=== PATIENT | female | born 1950 | race Caucasian/White ===

== ENCOUNTER 2021-05-25 08:00 | Observation (INO) | payer OTHER, MEDICARE ==
[~2021-05-25 08:00] MED LIST: Lidocaine 1%/Sod Bicarbonate in NS 8.4% 1 ML Syringe IDERM PRN; Sodium Chloride 0.9% 10 ML Syringe FLUSH PRN
[2021-05-25] MEDS: Lactated Ringers 1,000 ML IV SCH ×3 (09:05→14:53)
--- NOTE | 2021-05-25 09:38 | PCM.PREANE ---
Preanesthetic Assessment - Procedure Proposed Procedure: Open ventral hernia repair - Anesthesia/Transfusion/Family Hx Anesthesia History: Prior Anesthesia Without Reaction Transfusion History: Prior Transfusion Without Reaction - Review of Systems General: No Symptoms Pulmonary: No Symptoms, Other (sleep apnea) Cardiovascular: No Symptoms, Other (s/p CABG, cardiac clearance, recent cardiac studies reviewed, good EF) Gastrointestinal: No Symptoms Neurological: No Symptoms Other: Reports: None - Physical Assessment NPO Status Date: 05/24/21 NPO Status Time: 18:00 Vital Signs: 146/77 62 HR 96% RA ASA Class: 3 Mental Status: Alert & Oriented x3 Airway Class: Mallampati = 2 Dentition: Reports: Normal Dentition, [place](s) Thyro-Mental Finger Breadths: 3 Mouth Opening Finger Breadths: 3 ROM/Head Extension: Full Lungs: Clear to Auscultation, Normal Respiratory Effort Cardiovascular: Regular Rate, Regular Rhythm - Lab Values: Laboratory Last Values WBC 6.56 K/mm3 (3.98-10.04) 05/25/21 08:36 RBC 4.73 M/mm3 (3.98-5.22) 05/25/21 08:36 Hgb 15.2 gm/dl (11.2-15.7) 05/25/21 08:36 Hct 44.2 % (34.1-44.9) 05/25/21 08:36 MCV 93.4 fl (79.4-94.8) 05/25/21 08:36 MCH 32.1 pg (25.6-32.2) 05/25/21 08:36 MCHC 34.4 g/dl (32.2-35.5) 05/25/21 08:36 RDW Std Deviation 43.2 fL (36.4-46.3) 05/25/21 08:36 Plt Count 296 K/mm3 (182-369) 05/25/21 08:36 MPV 9.2 fl (9.4-12.3) L 05/25/21 08:36 Neut % (Auto) 56.4 % (34.0-71.1) 05/25/21 08:36 Lymph % (Auto) 31.3 % (19.3-51.7) 05/25/21 08:36 [place] % (Auto) 7.8 % (4.7-12.5) 05/25/21 08:36 Eos % (Auto) 3.7 (0.7-5.8) 05/25/21 08:36 Baso % (Auto) 0.8 % (0.1-1.2) 05/25/21 08:36 Neut # (Auto) 3.71 K/mm3 (1.56-6.13) 05/25/21 08:36 Lymph # (Auto) 2.05 K/mm3 (1.18-3.74) 05/25/21 08:36 [place] # (Auto) 0.51 K/mm3 (0.24-0.36) H 05/25/21 08:36 Eos # (Auto) 0.24 K/mm3 (0.04-0.36) 05/25/21 08:36 Baso # (Auto) 0.05 K/mm3 (0.01-0.08) 05/25/21 08:36 - Allergies Allergies/Adverse Reactions: Allergies Allergy/AdvReac Type Severity Reaction Status Date / Time cat dander Allergy Cannot Verified 05/25/21 10:20 Remember Dairy Products Allergy Cannot Verified 05/25/21 10:20 Remember gluten Allergy Cannot Verified 05/25/21 10:20 Remember hydrocodone Allergy Cannot Verified 05/25/21 10:20 Remember latex Allergy Cannot Verified 05/25/21 10:20 Remember nut - unspecified Allergy Cannot Verified 05/25/21 10:20 Remember onion Allergy Cannot Verified 05/25/21 10:20 Remember oxycodone Allergy Cannot Verified 05/25/21 10:20 Remember shellfish derived Allergy Cannot Verified 05/25/21 10:20 Remember tramadol Allergy Cannot Verified 05/25/21 10:20 Remember - Acknowledgements Anesthesia Type Planned: General Anesthesia, Epidural (for postoperative pain management) Pt an Appropriate Candidate for the Planned Anesthesia: Yes Alternatives and Risks of Anesthesia Discussed w Pt/Guardian: Yes Pt/Guardian Understands and Agrees with Anesthesia Plan: Yes PreAnesthesia Questionnaire HEENT History: Reports: Allergic Rhinitis, Impaired Vision Cardiovascular History: Reports: High Cholesterol, Hypertension, NM Respiratory History: Reports: Sleep Apnea, Other (See Below) Other Respiratory History: dypsnea on exertion, not currently using CPAP due to recall Gastrointestinal History: Reports: Other (See Below) Other Gastrointestinal History: large abdominal hernia Genitourinary History: Reports: Urinary Incontinence, Other (See Below) Other Genitourinary History: incontinence, OAB, JOE, bladder repair [employer] History: Reports: Other (See Below) Other OB/BYN History: vaginal atrophy Musculoskeletal History: Reports: Arthritis, Other (See Below) Other Musculoskeletal History: abnormal leg movment Neurological History: Reports: None Psychiatric History: Reports: Anxiety, Depression Endocrine/Metabolic History: Reports: None Hematologic History: Reports: Anemia Immunologic History: Reports: None Oncologic (Cancer) History: Reports: None Dermatologic History: Reports: Cellulitis - Past Surgical History HEENT Surgical History: Reports: Tonsillectomy Cardiovascular Surgical History: Reports: Coronary Artery Bypass (2017) Respiratory Surgical History: Reports: None GI Surgical History: Reports: Appendectomy, Cholecystectomy, Colonoscopy, EGD Female Surgical History: Reports: None, Hysterectomy, Oophorectomy Male Surgical History: Reports: None Endocrine Surgical History: Reports: None Neurological Surgical History: Reports: None Musculoskeletal Surgical History: Reports: Other (See Below) Other Musculoskeletal Surgeries/Procedures:: knee reconstruction Oncologic Surgical History: Reports: None Dermatological Surgical History: Reports: None - SUBSTANCE USE Tobacco Use Status *Q: Never Tobacco User Recreational Drug Use History: No - HOME MEDS Home Medications: Home Meds Acetaminophen [Tylenol Arthritis] 650 mg PO Q4H PRN 05/24/21 [History] Azelastine [Astelin Nasal Soln] 1 dose NASBOTH BID 05/24/21 [History] Calcium Carb, Citrate/Vit D3 [Citracal + D ER] 1 tab PO DAILY 05/24/21 [History] DULoxetine [Cymbalta] 30 mg PO DAILY 05/24/21 [History] Diclofenac Sodium [Voltaren 1% Gel] 1 dose TOP BID 05/24/21 [History] Donepezil HCl [Aricept] 10 mg PO DAILY 05/24/21 [History] Ezetimibe [Zetia] 10 mg PO DAILY 05/24/21 [History] Ferrous Sulfate [Iron] 325 mg PO DAILY 05/24/21 [History] Ketorolac [Acular 0.5% Ophth Soln] 1 dose EYEBOTH DAILY 05/24/21 [History] Multivitamin 1 tab PO DAILY 05/24/21 [History] [place]-3/DHA/Epa/Fish Oil [[place]-3 Fish Oil 1,000 MG Sfgl] 1,000 mg PO DAILY 05/24/21 [History] Rosuvastatin [Crestor] 10 mg PO DAILY 05/24/21 [History] Solifenacin [Vesicare] 5 mg PO DAILY 05/24/21 [History] hydroCHLOROthiazide [Hydrochlorothiazide] 12.5 mg PO DAILY 05/24/21 [History] Aspirin [Children's Aspirin] 81 mg PO DAILY 05/25/21 [History] Melatonin 10 mg PO DAILY 05/25/21 [History] - CURRENT (IN HOUSE) MEDS Current Meds: Current Medications Lactated Ringer's (Ringers, Lactated) 1,000 mls @ 125 mls/hr IV ASDIRECTED JUAN Stop: 05/25/21 23:00 Lidocaine/Sodium Bicarbonate (Lidocaine 1%/Sod Bicarbonate In Ns 8.4% 1 Ml Syringe) 0.25 ml IDERM ONETIME PRN PRN Reason: Prior to IV Start Stop: 05/25/21 18:00 Sodium Chloride (Sodium Chloride 0.9% 10 Ml Syringe) 10 ml FLUSH ASDIRECTED PRN PRN Reason: Keep Vein Open Stop: 05/25/21 18:00
[2021-05-25] MEDS ORDERED: Bupivacaine 0.5%/EPINEPHrine 1:200,000 50 ML MDV ONE (09:42)
[2021-05-25] MEDS ORDERED: fentaNYL 100 MCG/2 ML SDV ONE (09:54)
[2021-05-25] MEDS ORDERED: Lidocaine 2% with EPINEPHrine 1:200,000 20 ML SDV ONE (09:54)
[2021-05-25] MEDS ORDERED: Midazolam 1 MG/ML 2 ML SDV ONE (09:55)
[2021-05-25] MEDS ORDERED: Propofol 200 MG/20 ML SDV ONE ×2 (09:56→12:41)
[2021-05-25] MEDS ORDERED: ceFAZolin 1 GM Vial ONE (11:03)
[2021-05-25] MEDS ORDERED: Bupivacaine 0.5% 10 ML SDV ONE (11:34)
--- NOTE | 2021-05-25 12:17 | PCM.PRNOTE ---
- Free Text/Narrative Note: Thoracic epidural placement for intraoperative and postoperative pain management Surgery: Open ventral hernia repair with mesh Requesting surgeon: Dr. Serge Anderson Patient has been interviewed, risk/benefits/alternatives discussed, questions answered. Vital signs and labs reviewed. Consent signed. IVF bolus given. Patient is sitting on the bed, feet supported on the stool, positioning using pillow . Time out performed at 10:27. Mask, head cover, sterile gloves on. Betadine preparation x3 and sterile drape. Midazolam 1 mg IV given. Local infiltration with 1% Lidocaine at T10 - T11 interspace. 1st attempt with 17G Tuohy needle midline T10-T11 interspace. difficulty advancing the needle and inability to engage in the ligamentum flavum. 2nd attempt - same interspace, paramedian approach, lamina contact with redirection cephalad. Loss of Resistance at 5.5 cm. No fluid obtained, no blood obtained. No paresthesia encountered. Easy threading in of 19G catheter. Secured at 12 cm at the skin. Test dose given 1.5% Lidocaine with 1:200K epinephrine, negative for intravascular/ negative for intrathecal placement. Vital signs stable. Fentanyl 100 mcg and then 7 mls of 2 % PF Lidocaine with 1:200K epinephrine given in incremental boluses. Catheter dressing applied and filter attached. Level assessed at 10:50 approximately T7. Start of procedure: 10:27 End of procedure: 10:43
[2021-05-25] MEDS ORDERED: Lactated Ringers 1,000 ML ONE (12:29)
[2021-05-25] MEDS ORDERED: diphenhydrAMINE 50 MG/ML SDV IVPUSH PRN (12:36)
[2021-05-25] MEDS ORDERED: ePHEDrine 50 MG/ML SDV IVPUSH PRN ×2 (12:36→15:31)
[2021-05-25] MEDS ORDERED: fentaNYL 100 MCG/2 ML SDV EPIDUR PRN (12:36)
--- NOTE | 2021-05-25 13:58 | PCM.PRNOTE ---
- Free Text/Narrative Note: Date: 05/25/2021 Operation: open retrorectus mesh repair of ventral hernias Surgeon: Serge Anderson MD Antibiotic: 2 g ancef IV pre-op EBL: 50 cc DVT Ppx: SCDs Findings: multiple fairly small fat containing midline hernias superior to the umbilicus. Some adhesiolysis needed, < 30 minutes. 20 x 15 cm piece of Progrip mesh cut to size and placed in retrorectus space. Detailed Report: An epidural catheter was placed for analgesia for the patient by the anesthesia team prior to starting the case in the operating room. The patient was taken to the operating room and placed on the table in supine position. Monitored anesthesia care was initiated and timeout was performed. The abdomen was prepped and draped in usual sterile fashion. A [place] catheter was placed. 10 cc of 0.5% Marcaine with epinephrine was injected intradermally along the planned midline incision. A 20 cm incision starting at the epigastrium and extending inferiorly just beyond the umbilicus was made with a scalpel. Dissection was carried down through subcutaneous tissue to the linea alba. One of the small hernia sacs was entered during this portion of the dissection and the hernia appeared to contain visceral fat. This point of entry into the abdomen was used to extend the incision along the linea alba and entered the abdomen. There were some adhesions of viscera to the anterior abdominal wall which were dissected sharply with scissors. Once the anterior abdominal wall was freed of all adhesions, dissection in the retrorectus space commenced. Starting on the left side, an incision was made at the posterior rectus sheath exposing the rectus muscle fibers. This incision was extended superiorly and inferiorly along the length of the incision. Posterior fascia was grasped and pulled to the midline as the bilingual administrative assistant helped retract the rectus muscle laterally. The retrorectus space was developed all the way to the linea semilunaris. The same dissection was done on the right side as well. The excess peritoneum associated with the hernia sacs was excised sharply. The posterior rectus sheath was reapproximated at the midline with running 0 PDS suture. Next, a rectangular sheet of ProGrip permanent mesh measuring 20 cm x 15 cm was placed with the longer aspect running longitudinally. Mesh was cut to size to fit in the retrorectus space. A few 3-0 Vicryl sutures were used to tack the mesh at the lateral, superior and inferior points. The mesh lay nicely in the retrorectus space. Next, anterior fascia was closed at the midline with running 0 PDS suture. The linea alba was recreated without undue tension. The subcutaneous tissue was closed with a few interrupted 3-0 Vicryl sutures and the skin was closed with running subcuticular 4-0 Vicryl suture. The wound was dressed with Dermabond. The patient tolerated the operation well.
[2021-05-25] MEDS ORDERED: Lactated Ringers 1,000 ML IV SCH (14:00)
--- NOTE | 2021-05-25 14:22 | PCM.POSTAN ---
POST ANESTHESIA ASSESSMENT - MENTAL STATUS Mental Status: Alert, Oriented - VITAL SIGNS Vital Signs: Postoperative Vital Signs 99/46 58 HR 13 RR 95% 2L 96.7 F - RESPIRATORY Respiratory Status: Respiratory Rate WNL, Airway Patent, O2 Saturation Stable, Supplemental Oxygen - CARDIOVASCULAR CV Status: Pulse Rate WNL, Blood Pressure Stable, Slow Pulse Rate (Glycopyrrolate given) - GASTROINTESTINAL GI Status: No Symptoms - PAIN Pain Score: 0 (epidural ) - POST OP HYDRATION Hydration Status: Adequate & Stable
[2021-05-25] MEDS: Heparin Sodium 5,000 Units/ML Vial SUBCUT SCH ×2 (14:52→22:13)
[2021-05-25] MEDS: Bupivacaine/fentaNYL/NS 100 ML Bag EPIDUR PRN (15:13)
[2021-05-26] MEDS: Heparin Sodium 5,000 Units/ML Vial SUBCUT SCH ×3 (06:54→21:10)
[2021-05-26] MEDS: Trospium 20 MG Tab PO SCH ×2 (06:55→16:45)
--- NOTE | 2021-05-26 07:18 | PCM48HPAN ---
Post Anesthesia Note - EVALUATION WITHIN 48HRS OF ANESTHETIC Vital Signs in Normal Range: Yes Patient Participated in Evaluation: Yes Respiratory Function Stable: Yes Airway Patent: Yes Cardiovascular Function Stable: Yes Hydration Status Stable: Yes Pain Control Satisfactory: Yes Nausea and Vomiting Control Satisfactory: Yes Mental Status Recovered: Yes Vital Signs: Last Vital Signs Temp 99.0 F 05/26/21 04:00 Pulse 76 05/26/21 06:00 Resp 18 05/26/21 06:00 BP 106/59 L 05/26/21 06:00 Pulse Ox 96 05/26/21 06:00 - COMMENTS/OBSERVATIONS Free Text/Narrative:: Assessment and re-evaluation of the patient receiving a continuous epidural drip Patient is on her postoperative day 1. Vitas signs stable. Thoracic epidural site intact. Current rate of Bupivacaine 0.125% with Fentanyl 2mcg/ml has been without change 5 mls/hr (PCEA bolus of 1 ml q 15 min). Patient is stable hemodynamically at this rate and tolerating well. No lower extremities weakness or numbness noted. Patient is up to the chair and ambulate with assistance as tolerated. Plan is to remove epidural catheter on 05/27/2021 am. We will reevaluate the patient within the next 24 hours. Richard Mark CRNA.
--- NOTE | 2021-05-26 08:57 | PCM.SN.2 ---
- Free Text/Narrative Note: S/p elective open retrorectus repair of ventral hernia 05/25/2021 S: no acute events overnight, no complaints O: AF-VSS adequate urine output epidural in place with good analgesic effect Awake and alert, no distress breathing comfortably on 2 L NC RRR Abd incision with some surrounding ecchymosis labs reviewed, wnl A: Doing well after hernia repair on POD 1 P: -analgesia per anesthesia team while epidural in place -IS, OOB, PT consult ordered -teresita -remove herbert -regular diet -heparin SC 5000 u for DVT ppx -no need for repeat labs unless clinically indicated
[2021-05-26] MEDS: Rosuvastatin 10 MG Tab PO SCH (09:32)
[2021-05-26] MEDS: Ezetimibe 10 MG Tab PO SCH (09:32)
[2021-05-26] MEDS: Donepezil 10 MG Tab PO SCH (09:33)
[2021-05-26] MEDS: DULoxetine 30 MG Cap PO SCH (09:33)
[2021-05-26] MEDS: Ferrous Sulfate 324 MG Tab.EC PO SCH (09:33)
[2021-05-26] MEDS: Ketorolac 0.5% Ophth Soln 5 ML Bottle EYEBOTH SCH (09:33)
[2021-05-26] MEDS: Bupivacaine/fentaNYL/NS 100 ML Bag EPIDUR PRN (10:20)
[2021-05-27] MEDS: Trospium 20 MG Tab PO SCH (06:25)
[2021-05-27] MEDS: Bupivacaine/fentaNYL/NS 100 ML Bag EPIDUR PRN (06:26)
[2021-05-27] MEDS: Rosuvastatin 10 MG Tab PO SCH (09:12)
[2021-05-27] MEDS: DULoxetine 30 MG Cap PO SCH (09:12)
[2021-05-27] MEDS: Donepezil 10 MG Tab PO SCH (09:13)
[2021-05-27] MEDS: Ezetimibe 10 MG Tab PO SCH (09:13)
[2021-05-27] MEDS: Ferrous Sulfate 324 MG Tab.EC PO SCH (09:13)
[2021-05-27] MEDS: Ketorolac 0.5% Ophth Soln 5 ML Bottle EYEBOTH SCH (09:15)
--- NOTE | 2021-05-27 13:50 | PCM48HPAN ---
Post Anesthesia Note - EVALUATION WITHIN 48HRS OF ANESTHETIC Vital Signs in Normal Range: Yes Patient Participated in Evaluation: Yes Respiratory Function Stable: Yes Airway Patent: Yes Cardiovascular Function Stable: Yes Hydration Status Stable: Yes Pain Control Satisfactory: Yes Nausea and Vomiting Control Satisfactory: Yes Mental Status Recovered: Yes Vital Signs: Last Vital Signs Temp 98.3 F 05/27/21 08:00 Pulse 77 05/27/21 12:00 Resp 17 05/27/21 12:29 BP 144/72 H 05/27/21 12:00 Pulse Ox 90 L 05/27/21 12:00 - COMMENTS/OBSERVATIONS Free Text/Narrative:: Assessment and re-evaluation of the patient receiving a continuous epidural drip Patient is on her postoperative day 2. Vitas signs stable. Thoracic epidural site intact. Current rate of Bupivacaine 0.125% with Fentanyl 2mcg/ml has been without change 5 mls/hr (PCEA bolus of 1 ml q 15 min). Patient is stable hemodynamically at this rate and tolerating well. No lower extremities weakness or numbness noted. Patient is up to the chair and ambulate with assistance as tolerated. 6 am Heparin dose has been held. 10 am. Epidural drip stopped per Dr. Anderson request. 12:27 pm Removed epidural catheter, the tip was intact and no bleeding or discharge on site noted. Bandaid palced. Patient is denying any numbness or tingling in lower or upper extremities, motor function intact, no apparent anesthesia complications noted. This concludes anesthesia care. We thank you for having opportunity to take care of Mrs. Mills. Richard Mark CRNA.
[2021-05-27] MEDS ORDERED: Heparin Sodium 5,000 Units/ML Vial SUBCUT SCH (14:00)
--- NOTE | 2021-05-27 15:13 | PCM.DCSUM1 ---
Discharge Summary - Hospital Course Free Text/Narrative:: Mrs. Mills presented for elective open retrorectus repair of a ventral hernia on May 25. The operation was completed without complication. Preoperatively, an epidural catheter was placed for management of postop pain. The patient was transferred to the ICU postoperatively for management of the epidural catheter. Her pain was well controlled and she was normalized to go home within 48 hours. The day of discharge, the epidural was stopped and catheter was removed a few hours later. Pain was well controlled, the patient was able to ambulate, tolerated a diet, void without any issues. She was deemed fit for discharge to home with plan for follow-up in clinic 2 weeks after discharge. Diagnosis: Stroke: No - Discharge Data Discharge Date: 05/27/21 Discharge Disposition: Home, Self-Care 01 Condition: Good - Referral to Home Health Primary Care Physician: Bobbi Schultz NP - Patient Summary/Data Operative Procedure(s) Performed: open venrtal hernia repair with retrorectus mesh placement Consults: Consultations 05/26/21 08:57 Consult to Physical Therapy [PT Evaluation and Treatment] [CONS] Routine - Patient Instructions Diet: Usual Diet as Tolerated Activity: As Tolerated, No Lifting Over 10 Pounds Activity, Other: Continue incentive spirometry Showering/Bathing: May Shower Wound/Incision Care: Keep Operative Site/Wound Site Clean and Dry Notify Provider of: Fever, Increased Pain, Swelling and Redness, Drainage - Discharge Plan *PRESCRIPTION DRUG MONITORING PROGRAM REVIEWED*: Not Applicable *COPY OF PRESCRIPTION DRUG MONITORING REPORT IN PATIENT TRAVIS: Not Applicable Prescriptions/Med Rec: traMADol [Ultram] 50 mg PO Q4H PRN #30 tab PRN Reason: Pain Home Medications: Home Meds Acetaminophen [Tylenol Arthritis] 650 mg PO Q4H PRN 05/24/21 [History] Azelastine [Astelin Nasal Soln] 1 dose NASBOTH BID 05/24/21 [History] Calcium Carb, Citrate/Vit D3 [Citracal + D ER] 1 tab PO DAILY 05/24/21 [History] DULoxetine [Cymbalta] 30 mg PO DAILY 05/24/21 [History] Diclofenac Sodium [Voltaren 1% Gel] 1 dose TOP BID 05/24/21 [History] Donepezil HCl [Aricept] 10 mg PO DAILY 05/24/21 [History] Ezetimibe [Zetia] 10 mg PO DAILY 05/24/21 [History] Ferrous Sulfate [Iron] 325 mg PO DAILY 05/24/21 [History] Ketorolac [Acular 0.5% Ophth Soln] 1 dose EYEBOTH DAILY 05/24/21 [History] Multivitamin 1 tab PO DAILY 05/24/21 [History] [place]-3/DHA/Epa/Fish Oil [[place]-3 Fish Oil 1,000 MG Sfgl] 1,000 mg PO DAILY 05/24/21 [History] Rosuvastatin [Crestor] 10 mg PO DAILY 05/24/21 [History] Solifenacin [Vesicare] 5 mg PO DAILY 05/24/21 [History] hydroCHLOROthiazide [Hydrochlorothiazide] 12.5 mg PO DAILY 05/24/21 [History] Aspirin [Children's Aspirin] 81 mg PO DAILY 05/25/21 [History] Melatonin 10 mg PO DAILY 05/25/21 [History] traMADol [Ultram] 50 mg PO Q4H PRN #30 tab 05/27/21 [Rx] Patient Handouts: Ventral Hernia Referrals: Bobbi Schultz WRAPPER OPENER [Primary Care Provider] - (Follow up as needed) Serge Anderson MD [Physician] - - Discharge Summary/Plan Comment DC Time >30 min.: No - Patient Data Vitals - Most Recent: Last Vital Signs Temp 36.8 C 05/27/21 08:00 Pulse 77 05/27/21 12:00 Resp 17 05/27/21 12:29 BP 144/72 H 05/27/21 12:00 Pulse Ox 90 L 05/27/21 12:00 Weight - Most Recent: 87.271 kg I&O - Last 24 hours: Intake & Output 05/27/21 05/27/21 05/27/21 06:59 14:59 22:59 Intake Total 400 120 Output Total 650 Balance -250 120 Med Orders - Current: Current Medications Diphenhydramine HCl (Diphenhydramine 50 Mg/Ml Sdv) 25 mg IVPUSH Q6H PRN PRN Reason: pruritis Donepezil HCl (Donepezil 10 Mg Tab) 10 mg PO DAILY JUAN Last Admin: 05/27/21 09:13 Dose: 10 mg Documented by: Duloxetine HCl (Duloxetine 30 Mg Cap) 30 mg PO DAILY [facility] Last Admin: 05/27/21 09:12 Dose: 30 mg Documented by: Ezetimibe (Ezetimibe 10 Mg Tab) 10 mg PO DAILY [facility] Last Admin: 05/27/21 09:13 Dose: 10 mg Documented by: Ephedrine Sulfate (Ephedrine 50 Mg/Ml Sdv) 5 mg IVPUSH Q10M PRN PRN Reason: hypotension Fentanyl (Fentanyl 100 Mcg/2 Ml Sdv) 100 mcg EPIDUR Q3H PRN PRN Reason: Pain Fentanyl/Bupivacaine HCl (Bupivacaine/Fentanyl/Ns 100 Ml Bag) 100 ml EPIDUR ASDIRECTED PRN PRN Reason: Pain Last Admin: 05/27/21 06:26 Dose: 100 ml Documented by: Ferrous Sulfate (Ferrous Sulfate 324 Mg Tab.Ec) 324 mg PO DAILY [facility] Last Admin: 05/27/21 09:13 Dose: 324 mg Documented by: Ketorolac Tromethamine (Ketorolac 0.5% Ophth Soln 5 Ml Bottle) 0 ml EYEBOTH DAILY [facility] Last Admin: 05/27/21 09:15 Dose: 1 drop Documented by: Rosuvastatin Calcium (Rosuvastatin 10 Mg Tab) 10 mg PO DAILY [facility] Last Admin: 05/27/21 09:12 Dose: 10 mg Documented by: Trospium (Trospium 20 Mg Tab) 20 mg PO BIDAC [facility] Last Admin: 05/27/21 06:25 Dose: 20 mg Documented by: Discontinued Medications Bupivacaine HCl (Bupivacaine 0.5% 10 Ml Sdv) Confirm Administered Dose 10 ml .ROUTE .STK-MED ONE Stop: 05/25/21 11:35 Bupivacaine HCl/Epinephrine Bitart (Bupivacaine 0.5%/Epinephrine 1:200,000 50 Ml Mdv) Confirm Administered Dose 50 ml .ROUTE .STK-MED ONE Stop: 05/25/21 09:43 Last Admin: 05/25/21 13:02 Dose: 10 ml Documented by: Cefazolin Sodium (Cefazolin 1 Gm Vial) Confirm Administered Dose 2 gm .ROUTE .STK-MED ONE Stop: 05/25/21 11:04 Ephedrine Sulfate (Ephedrine 50 Mg/Ml Sdv) 5 mg IVPUSH ASDIRECTED PRN PRN Reason: Hypotension Fentanyl (Fentanyl 100 Mcg/2 Ml Sdv) Confirm Administered Dose 100 mcg .ROUTE .STK-MED ONE Stop: 05/25/21 09:55 Glycopyrrolate (Glycopyrrolate 0.2 Mg/Ml 2 Ml Syringe) Confirm Administered Dose 0.4 mg .ROUTE .STK-MED ONE Stop: 05/25/21 14:13 Heparin Sodium (Porcine) (Heparin Sodium 5,000 Units/Ml Vial) 5,000 units SUBCUT Q8H [facility] Stop: 05/27/21 03:00 Last Admin: 05/26/21 21:10 Dose: 5,000 units Documented by: Heparin Sodium (Porcine) (Heparin Sodium 5,000 Units/Ml Vial) 5,000 units SUBCUT Q8H [facility] Lactated Ringer's (Ringers, Lactated) 1,000 mls @ 125 mls/hr IV ASDIRECTED [facility] Stop: 05/25/21 23:00 Last Infusion: 05/25/21 15:01 Dose: 75 mls/hr Documented by: Lactated Ringer's (Ringers, Lactated) Confirm Administered Dose 1,000 mls @ as directed .ROUTE .ST-MED ONE Stop: 05/25/21 12:30 Lactated Ringer's (Ringers, Lactated) 1,000 mls @ 75 mls/hr IV ASDIRECTED [facility] Last Admin: 05/26/21 03:11 Dose: 75 mls/hr Documented by: Lidocaine/Epinephrine (Lidocaine 2% With Epinephrine 1:200,000 20 Ml Sdv) Confirm Administered Dose 20 ml .ROUTE .STK-MED ONE Stop: 05/25/21 09:55 Lidocaine/Sodium Bicarbonate (Lidocaine 1%/Sod Bicarbonate In Ns 8.4% 1 Ml Syringe) 0.25 ml IDERM ONETIME PRN PRN Reason: Prior to IV Start Stop: 05/25/21 18:00 Midazolam HCl (Midazolam 1 Mg/Ml 2 Ml Sdv) Confirm Administered Dose 2 mg .ROUTE .STK-MED ONE Stop: 05/25/21 09:56 Miscellaneous Medication (Phenylephrine Hcl In 0.9% Nacl 1 Mg/10 Ml Syringe) Confirm Administered Dose 1 mg .ROUTE .STK-MED ONE Stop: 05/25/21 11:29 Propofol (Propofol 200 Mg/20 Ml Sdv) Confirm Administered Dose 400 mg .ROUTE .STK-MED ONE Stop: 05/25/21 09:57 Propofol (Propofol 200 Mg/20 Ml Sdv) Confirm Administered Dose 200 mg .ROUTE .STK-MED ONE Stop: 05/25/21 12:42 Sodium Chloride (Sodium Chloride 0.9% 10 Ml Syringe) 10 ml FLUSH ASDIRECTED PRN PRN Reason: Keep Vein Open Stop: 05/25/21 18:00
== END 2021-05-27 15:35 | disposition home or self-care (01) ==
LOC: EDSTATUS 08:00 → JD.ICU 08:41 → INTOOBSV 08:41 → JD.ICU 11:01
PROVIDERS: ADMIT Surgery; ATTEND Surgery
DX: K43.9 Ventral hernia without obstruction or gangrene (principal); E78.00 Pure hypercholesterolemia, unspecified; I10 Essential (primary) hypertension; I25.2 Old myocardial infarction; G47.30 Sleep apnea, unspecified; Z88.6 Allergy status to analgesic agent; Z88.8 Allergy status to other drugs, medicaments and biological substances; Z91.040 Latex allergy status; Z91.011 Allergy to milk products; Z91.013 Allergy to seafood; Z91.018 Allergy to other foods; Z79.82 Long term (current) use of aspirin; Z79.899 Other long term (current) drug therapy
CPT/HCPCS: 36415; 49560; 49568; 51798; 80048; 85025; 97110; 97161; A9270; C1781; G0378; J0690; J1644; J2250; J2370; J2704; J3010; J3490; J7120; 00752; 01996; 62324; 99100